=== PATIENT | female | born 1990 ===

== ENCOUNTER 2024-05-31 09:01 | Inpatient (IN) | payer OTHER ==
[2024-05-31] MEDS: ELECTROLYTE-148 SOLN 1,000 ML IV ONE (10:00)
[2024-05-31 10:10] LABS: BASO % 0.4 % (0-2.0); EOS % 0.8 % (0-4.5); HEMATOCRIT 39.8 % (32.4-45.2); HEMOGLOBIN 13.6 GM/dL (10.7-15.3); LYMPH % 23.8 % (8-40); MCH 32.1 pg (25.7-33.7); MCHC 34.1 g/dl (32.0-36.0); MEAN CELL VOLUME 94.2 fl (80-96); MEAN PLT VOLUME 10.3 fl (7.5-11.1); MONO % 3.9 % (3.8-10.2); NEUT % 71.1 % (42.8-82.8); PLATELET COUNT 132 10^3/uL (134-434); RBC 4.23 M/mm3 (3.60-5.2); RDW 14.2 % (11.6-15.6); WHITE BLOOD COUNT 7.7 K/mm3 (4.0-10.0)
[2024-05-31 10:12] LABS: INR 0.9 (0.83-1.09); PROTHROMBIN TIME (PATIENT) 10.2 SEC (9.7-13.0)
[2024-05-31 10:15] LABS: ACTIVATED PTT 27.9 SECONDS (25.2-36.5)
[2024-05-31 10:32] LABS: CHLORIDE 107 mmol/L (98-107); POTASSIUM 3.5 mmol/L (3.5-5.1); SODIUM 137 mmol/L (136-145)
[2024-05-31 10:33] LABS: CALCIUM 8.9 mg/dL (8.5-10.1)
[2024-05-31 10:34] LABS: ANION GAP 9 mmol/L (4-13); CO2 21 mmol/L (21-32); GLUCOSE,RANDOM 87 mg/dL (74-106)
[2024-05-31 10:37] LABS: CREATININE 0.5 mg/dL (0.55-1.3)
[2024-05-31] MEDS: MISOPROSTOL 25 MCG TABLET (COMPOUNDED BY PHARMACY) BUC SCH (11:18)
[2024-05-31 11:25] VITALS: BMI 31.8
[2024-05-31] MEDS ORDERED: OXYTOCIN 30 UNITS in 0.9% NS 30 UNIT/500 ML INFUS.BAG IVPB ONE (19:17)
[2024-05-31] MEDS: OXYTOCIN 30 UNITS in 0.9% NS 30 UNIT/500 ML INFUS.BAG IVPB SCH (19:45)
[2024-06-01] MEDS: ELECTROLYTE-148 SOLN 1,000 ML IV SCH (01:00)
[2024-06-01] MEDS ORDERED: BUTORPHANOL TARTRATE 2 MG/ML VIAL ONE (07:10)
[2024-06-01] MEDS ORDERED: PROMETHAZINE HCL 25 MG/1 ML VIAL ONE (07:11)
[2024-06-01] MEDS: PROMETHAZINE HCL 25 MG/1 ML VIAL IVPB ONE (07:20)
[2024-06-01] MEDS: BUTORPHANOL TARTRATE 2 MG/ML VIAL IVPUSH ONE (07:20)
[2024-06-01] MEDS ORDERED: FENTANYL/BUPIVACAINE/NS/PF - PCEA - 50 ML DISP.SYRIN EP ONE ×2 (10:13→15:02)
[2024-06-01] MEDS ORDERED: NALOXONE HCL 0.4 MG/ML VIAL IVPUSH PRN (10:22)
[2024-06-01] MEDS ORDERED: BUPIVACAINE HCL/PF 0.25% (2.5MG/ML) 10 ML VIAL ONE (10:24)
[2024-06-01] MEDS: FENTANYL/BUPIVACAINE/NS/PF - PCEA - 50 ML DISP.SYRIN EP SCH (10:45)
[2024-06-01] MEDS ORDERED: OXYTOCIN 20 UNITS in 0.9% NS 20 UNIT/1,000 ML INFUS.BAG IV ONE (14:44)
[2024-06-01] MEDS: OXYTOCIN 20 UNITS in 0.9% NS 20 UNIT/1,000 ML INFUS.BAG IV SCH (16:11)
[2024-06-01] MEDS ORDERED: MISOPROSTOL 200 MCG TABLET ONE (16:13)
[2024-06-01] MEDS ORDERED: OXYTOCIN 10 UNITS/ML VIAL ONE (16:13)
[2024-06-01] MEDS: OXYTOCIN 10 UNITS/ML VIAL IM ONE (16:16)
[2024-06-01] MEDS: TRANEXAMIC ACID 1000 MG/10 ML VIAL IVPB ONE (16:18)
[2024-06-01] MEDS ORDERED: LIDOCAINE HCL 1% PRESERVATIVE FREE - 30ML VIAL ONE (16:21)
[2024-06-01] MEDS: MISOPROSTOL 200 MCG TABLET PR ONE (16:30)
[2024-06-01] MEDS ORDERED: TRANEXAMIC ACID 1000 MG/10 ML VIAL ONE (16:34)
[2024-06-01] MEDS ORDERED: BISACODYL 10 MG SUPP.RECT RC PRN (17:33)
[2024-06-01] MEDS ORDERED: METHYLERGONOVINE MALEATE 0.2 MG/1 ML AMP IM PRN (17:33)
[2024-06-01] MEDS ORDERED: BENZOCAINE 28 GM HEMORRHOIDAL OINTMENT TP PRN (17:33)
[2024-06-01] MEDS: IBUPROFEN 600 MG TABLET (FP) PO PRN (21:08)
[2024-06-02] MEDS: WITCH HAZEL 50% (TUCKS) 40 PAD/JAR PAD TP PRN (00:53)
[2024-06-02] MEDS: BENZOCAINE 20% 57 GM BOTTLE TP PRN (00:54)
[2024-06-02 03:56] VITALS: RESP 18
[2024-06-02 06:42] LABS: BASO % 0.4 % (0-2.0); EOS % 0.4 % (0-4.5); HEMATOCRIT 29.9 % (32.4-45.2); HEMOGLOBIN 10.2 GM/dL (10.7-15.3); LYMPH % 13.7 % (8-40); MCH 32.6 pg (25.7-33.7); MCHC 34.2 g/dl (32.0-36.0); MEAN CELL VOLUME 95.3 fl (80-96); MONO % 4.3 % (3.8-10.2); NEUT % 81.2 % (42.8-82.8); PLATELET COUNT 116 10^3/uL (134-434); RBC 3.14 M/mm3 (3.60-5.2); RDW 13.9 % (11.6-15.6); WHITE BLOOD COUNT 10.9 K/mm3 (4.0-10.0)
[2024-06-02] MEDS: ACETAMINOPHEN 325 MG TABLET (FP) PO PRN (09:49)
[2024-06-02] MEDS: PRENATAL VITAMINS W/ FOLIC ACID TABLET (FP) PO SCH (09:49)
[2024-06-02] MEDS: FLU VACCINE (FLULAVAL) PF 45 MCG/0.5 ML SYRINGE 2024-2025 IM ONE (09:50)
[2024-06-02] MEDS: DIPHTH,PERTUSS(ACELL),TET 0.5 ML DISP.SYRIN IM ONE (09:52)
[2024-06-02] MEDS ORDERED: SENNOSIDES/DOCUSATE COMBO (SENNA PLUS) TABLET (UD) PO PRN (22:00)
[2024-06-03 10:54] VITALS: BP 96/63; PULSE 98; TEMP 97.9
== END 2024-06-03 14:50 | disposition home or self-care (01) | DRG 560 ==
LOC: JLDR 09:01 → J3W 06-01 20:05
PROVIDERS: ADMIT Obstetrics & Gynecology; ATTEND Obstetrics & Gynecology
PROC: 10E0XZZ Delivery of Products of Conception, External Approach (ICD-10-PCS; principal; 2024-06-01)
PROC: 0HQ9XZZ Repair Perineum Skin, External Approach (ICD-10-PCS; 2024-06-01)
DX: O48.0 Post-term pregnancy (principal); Z3A.41 41 weeks gestation of pregnancy; O77.0 Labor and delivery complicated by meconium in amniotic fluid; O70.0 First degree perineal laceration during delivery; Z37.0 Single live birth
CPT/HCPCS: 36415; 59409; 80048; 85025; 85610; 85730; 86780; 86850; 86900; 86901; 90656; 90715; G0008